=== PATIENT | female | born 1965 | race Caucasian/White ===

== ENCOUNTER → 2016-10-10 | Outpatient (CLI) | payer OTHER ==
[~2016-10-10] MED LIST: ADVAIR 250/501 DISK IH; AMOX TR-K CLV1 EAC4 PO; AZITHROMYCIN250 MG PO; BENTYL20 MG PO; CALCI-CHEW500 MG PO; DUONEBS; GLUCOPHAGE500 MG PO; LEVAQUIN750 MG PO; LEVOTHYROXINE150 MCG PO; LEVOTHYROXINE175 MCG PO; METFORMIN HCL500 M1 PO; MIRALAX17 GM PO; MOTRIN800 MG PO; NAPROSYN500 MG PO; PEN-VEE K,VEET500 MG PO; PRAVASTATIN SOD80 MG PO; PREDNISONE10 MG PO; PREDNISONE5 MG PO; PROVENTIL,200 INHALA; SPIRIVA1 INHALATI IH; SULFAZINE500 M1 PO; SYNTHROID75 MCG; Tums,OsCal PO; Tylenol Regular Stre PO; VENTOLIN HFA18 GM IH; Zithromax PO; predniSONE PO
== END | disposition home or self-care (01) ==
LOC: RES 10-08 08:00
DX: Z02.71 Encounter for disability determination (principal); F17.200 Nicotine dependence, unspecified, uncomplicated
CPT/HCPCS: 94060; 94729

== ENCOUNTER 2016-10-11 22:05 | Emergency (ER) | payer OTHER ==
[~2016-10-11] VITALS: Ht 172.7 cm; Wt 107.7 kg
[~2016-10-11 22:05] MED LIST changes: -MOTRIN800 MG PO; -PEN-VEE K,VEET500 MG PO
[2016-10-12] MEDS ORDERED: PEN-VEE K,VEET500 MG PO (00:56)
[2016-10-12] MEDS ORDERED: MOTRIN800 MG PO (00:56)
[2016-10-12 01:00] VITALS: BP 163/68
== END 2016-10-12 01:34 | disposition home or self-care (01) ==
LOC: EME 22:05 → EXP 22:05
DX: K11.8 Other diseases of salivary glands (principal); K02.9 Dental caries, unspecified; J45.909 Unspecified asthma, uncomplicated; E11.9 Type 2 diabetes mellitus without complications; J44.9 Chronic obstructive pulmonary disease, unspecified; E78.5 Hyperlipidemia, unspecified; K21.9 Gastro-esophageal reflux disease without esophagitis; E03.9 Hypothyroidism, unspecified; F17.210 Nicotine dependence, cigarettes, uncomplicated; E66.9 Obesity, unspecified
CPT/HCPCS: 70360; 99281; 99283

== ENCOUNTER 2017-05-14 10:22 | Observation (INO) | payer OTHER ==
[~2017-05-14] VITALS: Ht 175.3 cm; Wt 105.8 kg
[~2017-05-14 10:22] MED LIST changes: +MOTRIN800 MG PO; +PEN-VEE K,VEET500 MG PO
[2017-05-14 11:03] LABS: HEMATOCRIT 43.5 % (36.0-46.0); MCH 29.3 PG (29.0-34.0); MCHC 33.6 G/DL (30.0-36.0); MCV 87.3 FL (83-99); MEAN PLAT.VOLUME 10.6 uM^3 (9.5-12.4); PLATELET COUNT 217 K/uL (156-360); RBC DIS.WIDTH-CV 13.2 % (11.8-14.6); RBC DIS.WIDTH-SD 42.2 % (39-53); RED BLOOD COUNT 4.98 M/uL (3.80-5.20); WHITE BLOOD COUNT 8.6 K/uL (4.1-10.2)
[2017-05-14 11:14] LABS: CHLORIDE 93 mEq/L (99-109); POTASSIUM 4.4 mEq/L (3.7-5.4); SODIUM 136 mEq/L (136-147)
[2017-05-14 11:16] LABS: GLUCOSE 209 mg/dL (70-99)
[2017-05-14 11:18] LABS: ANION GAP 13 MEQ/L (2-14)
[2017-05-14 11:20] LABS: GFR ESTIMATE (CALCULATED) > 59 mL/min/
[2017-05-14 11:21] LABS: UREA NITROGEN (BUN) 5 mg/dL (9-23)
[2017-05-14 11:25] LABS: TROP-I INTERPRETATION NEGATIVE; TROPONIN-I < 0.01 ng/mL (0.0-0.30)
[2017-05-14 11:29] LABS: QUANTITATIVE HCG < 4.0 MIU/ML
[2017-05-14 14:28] VITALS: BP 129/63
[2017-05-14 16:45] LABS: POINT-OF-CARE METER ID UU13113700
[2017-05-14 19:08] LABS: TROP-I INTERPRETATION NEGATIVE; TROPONIN-I < 0.01 ng/mL (0.0-0.30)
[2017-05-14 19:58] LABS: ADD MIUA? YES; BILIRUBIN NEGATIVE; BLOOD NEGATIVE; COLOR YELLOW ((YELLOW)); GLUCOSE (STRIP) >=500; KETONES 5; LEUKOCYTES NEGATIVE; NITRITE NEGATIVE; PROTEIN (STRIP) 100
[2017-05-14 20:04] LABS: BACTERIA NONE SEEN /HPF; EPITHELIAL CELLS RARE /HPF; MUCUS NONE SEEN /LPF; RED BLOOD CELLS 0-5 /HPF (0-5); UCUL ADDED? NO; WHITE BLOOD CELLS 0-5 /HPF (0-5)
[2017-05-14 21:43] LABS: POINT-OF-CARE METER ID UU14162513
[2017-05-14 22:43] VITALS: BP 136/67
[2017-05-15 00:49] LABS: TROP-I INTERPRETATION NEGATIVE; TROPONIN-I < 0.01 ng/mL (0.0-0.30)
[2017-05-15 04:16] VITALS: BP 145/69
[2017-05-15 08:15] VITALS: BP 134/69
[2017-05-15 08:32] LABS: POINT-OF-CARE METER ID UU14162513
[2017-05-15 11:53] VITALS: BP 141/73
[2017-05-15 12:50] LABS: POINT-OF-CARE METER ID UU14162513
== END 2017-05-15 13:29 | disposition home or self-care (01) ==
LOC: EME 10:22 → EDOF 12:58 → 5WEST 12:58 → ENRESERV 13:17 → 5WEST 14:05
PROVIDERS: Emergency Medicine; Internal Medicine
DX: R07.9 Chest pain, unspecified (principal); I44.7 Left bundle-branch block, unspecified; E11.9 Type 2 diabetes mellitus without complications; E78.5 Hyperlipidemia, unspecified; J44.9 Chronic obstructive pulmonary disease, unspecified; E03.9 Hypothyroidism, unspecified; F17.210 Nicotine dependence, cigarettes, uncomplicated; Z79.84 Long term (current) use of oral hypoglycemic drugs; Z79.52 Long term (current) use of systemic steroids
CPT/HCPCS: 71010; 80048; 81003; 82948; 84484; 84702; 85027; 93005; 93306; 94760; 94799; 99202; G0378; J1815

== ENCOUNTER 2017-10-26 08:44 | Emergency (ER) | payer OTHER ==
[~2017-10-26] VITALS: Ht 172.7 cm; Wt 100.0 kg
[2017-10-26] MEDS ORDERED: NORCO 5/3251 TABLET PO (12:36)
[2017-10-26 13:00] VITALS: BP 129/99
== END 2017-10-26 13:04 | disposition home or self-care (01) ==
LOC: EME 08:44
DX: S20.212A Contusion of left front wall of thorax, initial encounter (principal); V49.40XA Driver injured in collision with unspecified motor vehicles in traffic accident, initial encounter; E11.9 Type 2 diabetes mellitus without complications; Z79.84 Long term (current) use of oral hypoglycemic drugs; J44.9 Chronic obstructive pulmonary disease, unspecified; Z99.81 Dependence on supplemental oxygen; F17.200 Nicotine dependence, unspecified, uncomplicated; E78.5 Hyperlipidemia, unspecified; K21.9 Gastro-esophageal reflux disease without esophagitis; E03.9 Hypothyroidism, unspecified
CPT/HCPCS: 71101; 93005; 99281; 99284